=== PATIENT | male | born 1975 | race Caucasian/White ===

== ENCOUNTER → 2018-11-22 15:10 | Outpatient (CLI) | payer BC, SELFPAY | PROVIDERS: PCP Family Medicine; Visit Provider Nurse Practitioner | DX: I10 Essential (primary) hypertension (principal) | CPT/HCPCS: 93017 ==

== ENCOUNTER 2020-01-03 19:48 | Emergency (ER) | payer BC, SELFPAY ==
[2020-01-03 19:50] VITALS: BP 154/92; PULSE 84; RESP 16; TEMP 36.8; O2SAT 100; BMI 29.2
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
[2020-01-03 20:13] VITALS: BP 141/88; PULSE 80; RESP 18; O2SAT 98
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
[2020-01-03 21:25] VITALS: BP 140/80; PULSE 82; RESP 18; TEMP 36.8; O2SAT 98
== END 2020-01-03 21:25 | disposition home or self-care (01) ==
PROVIDERS: Emergency Provider Emergency Medicine; PCP Family Medicine
DX: S16.1XXA Strain of muscle, fascia and tendon at neck level, initial encounter (principal); S00.03XA Contusion of scalp, initial encounter; S49.91XA Unspecified injury of right shoulder and upper arm, initial encounter; V19.3XXA Pedal cyclist (driver) (passenger) injured in unspecified nontraffic accident, initial encounter; Y92.414 Local residential or business street as the place of occurrence of the external cause
CPT/HCPCS: 70450; 72125; 73030; 99283

== ENCOUNTER → 2020-01-04 13:33 | Outpatient (CLI) | payer BC, SELFPAY ==
--- NOTE | 2020-01-04 13:42 | XR_ITS ---
PROCEDURE: XR SHOULDER RT MIN 2V CLINICAL INDICATION: right shoulder pain COMPARISON: CR XR SHOULDER RT MIN 2V from 01/03/2020 FINDINGS: No acute fracture is evident. There is mild prominence of the AC joint with superior elevation of the distal aspect of the clavicle indicating an AC separation. Other findings:None. IMPRESSION: Right-sided AC separation possible grade 2 Dictated by: Jus Morelos MD 01/04/2020 16:24 Jus Morelos MD in [facility] 01/04/2020 16:24
== END ==
PROVIDERS: PCP Family Medicine; Visit Provider Orthopaedic Surgery
DX: M25.511 Pain in right shoulder (principal)
CPT/HCPCS: 73030

== ENCOUNTER 2020-02-13 08:00 | Outpatient (RCR) | payer BC, SELFPAY ==
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
== END 2020-02-13 08:05 | disposition home or self-care (01) ==
LOC: OT 08:00
PROVIDERS: PCP Family Medicine; Visit Provider Orthopaedic Surgery
DX: S49.91XD Unspecified injury of right shoulder and upper arm, subsequent encounter (principal); S43.111D Subluxation of right acromioclavicular joint, subsequent encounter
CPT/HCPCS: 97014; 97110; 97165; 97530; G0283

== ENCOUNTER → 2020-04-26 16:08 | Outpatient (CLI) | payer BC, SELFPAY ==
[2020-04-28 10:47] LABS: Covid-19 Nasal PCR Sendout P&C POSITIVE
== END ==
PROVIDERS: PCP Family Medicine; Visit Provider Nurse Practitioner
DX: Z20.822 Contact with and (suspected) exposure to COVID-19 (principal); U07.1 COVID-19; R68.89 Other general symptoms and signs; R50.9 Fever, unspecified
CPT/HCPCS: U0004

== ENCOUNTER 2021-03-30 04:26 | Observation (INO) | payer BC, SELFPAY ==
[2021-03-30] VITALS (23 sets, daily range): BP systolic 105–148; BP diastolic 64–99; PULSE 58–119; RESP 16–24; TEMP 36.6–36.7; O2SAT 95–98; BMI 30.7; BMI 30.6
--- NOTE | 2021-03-30 04:28 | ECG_ITS ---
APPROVED REPORT Exam: Resting ECG HR:106 bpm ECG Measurements Heart Rate 106 AXES QRSd 104 QRS 56 QT 340 T 68 QTc 451 Conclusion Atrial fibrillation with rapid ventricular response Minimal voltage criteria for LVH, may be normal variant Abnormal ECG Electronically signed by : Carlitos Tristan MD 03/30/2021 06:12:17
--- NOTE | 2021-03-30 04:59 | PC.NURSE ---
Cardizem increased to 15mg/hr at 0437
--- NOTE | 2021-03-30 05:02 | HMH.EDARPALP ---
ED Disposition Clinical Impression: Atrial fibrillation Qualifiers: Atrial fibrillation type: unspecified Qualified Code(s): I48.91 - Unspecified atrial fibrillation Disposition: Admitted as Observation Condition on Discharge: Good Referrals: Carlitos Cash MD [Primary Care Provider] - - Critical Care Critical Care Time: No Attestation: On , the high probability of a clinically significant, sudden or life threatening deterioration of the following system(s) required my full and direct attention, intervention and personal management. The time I documented below is in addition to time spent performing reported procedures but includes the following listed in this critical care notation. Medical Decision Making - Medical Records Medical records reviewed: Yes: I reviewed the patient's medical records. - Pedro Inquiry Pt receiving controlled substance: No Vital Signs: 03/30/21 04:26 03/30/21 04:37 03/30/21 05:00 Temperature 98.1 F Temperature Source Oral Pulse Rate 118 H 62 Pulse Rate [Right Radial] 119 H Respiratory Rate 20 19 Blood Pressure 130/99 H Blood Pressure [Right Arm] 148/99 H Blood Pressure Mean Blood Pressure Mean [Right Arm] 115 Blood Pressure Source [Right Arm] Automatic Cuff Blood Pressure Position [Right Arm] Sitting 02 Sat by Pulse Oximetry 97 97 Oxygen Delivery Method Room Air 03/30/21 05:30 03/30/21 06:00 03/30/21 06:30 Temperature Temperature Source Pulse Rate 76 85 76 Pulse Rate [Right Radial] Respiratory Rate 19 17 17 Blood Pressure 124/94 H 113/81 105/82 L Blood Pressure [Right Arm] Blood Pressure Mean Blood Pressure Mean [Right Arm] Blood Pressure Source [Right Arm] Blood Pressure Position [Right Arm] 02 Sat by Pulse Oximetry 96 97 97 Oxygen Delivery Method 03/30/21 06:55 03/30/21 07:15 03/30/21 07:30 Temperature Temperature Source Pulse Rate 96 H 74 74 Pulse Rate [Right Radial] Respiratory Rate 18 18 18 Blood Pressure 111/84 115/80 114/82 Blood Pressure [Right Arm] Blood Pressure Mean 90 96 Blood Pressure Mean [Right Arm] Blood Pressure Source [Right Arm] Blood Pressure Position [Right Arm] 02 Sat by Pulse Oximetry 98 97 97 Oxygen Delivery Method 03/30/21 07:33 Temperature Temperature Source Pulse Rate 71 Pulse Rate [Right Radial] Respiratory Rate 18 Blood Pressure 127/78 Blood Pressure [Right Arm] Blood Pressure Mean 94 Blood Pressure Mean [Right Arm] Blood Pressure Source [Right Arm] Blood Pressure Position [Right Arm] 02 Sat by Pulse Oximetry 98 Oxygen Delivery Method - Lab Data Lab results reviewed: Yes: I reviewed the patient's lab results. Lab Results 03/30/21 04:54: Troponin I 0.01, TSH 0.70, Thyroxine (T4) 16.1 H Orders (Tests/Meds): ED MEDICATIONS Generic Name Dose Route Start Last Admin Trade Name Freq PRN Reason Stop Dose Admin Diltiazem HCl 100 mg/ Sodium 100 mls @ 10 mls/hr 03/30/21 06:57 03/30/21 07:31 Chloride IV 04/29/21 06:56 10 mls/hr .Q10H MAX Administration Protocol ORDERS Category Date Time Status Rapid PCR Covid and Flu A/B Stat Lab 03/30/21 06:22 Ordered Troponin I Q3H Lab 03/30/21 07:45 Ordered Troponin I Q3H Lab 03/30/21 10:45 Ordered EKG Request [ECG Request by Dr/Nse] Stat Y 03/30/21 08:32 Ordered - ECG Data Tracing #1 Arrhythmias present: afib Ischemic changes: non-specific ST-T wave changes ECG compared to prior tracings: there are no significant changes - Physician Consults Physician Consulted: yonis Reason -: Admission Medical Decision Narrative: new onset a fib on card drip - wl elevated t4 Arrhythmia/Palpitations HPI - General Chief Complaint: Arrhythmia/Palpitations Stated Complaint: Afib Time Seen by Provider: 03/30/21 04:35 Mode of Arrival: EMS Source of Information: Patient, EMS, Medical Record Limitations: No Limitations - History of Present Illness HPI soniya
[2021-03-30 05:27] LABS: T4 (Thyroxine) 16.1 ug/dl (5.53-11.0)
[2021-03-30 05:28] LABS: Troponin I 0.01 ng/ml (0.00-0.034)
--- NOTE | 2021-03-30 06:32 | PC.NURSE ---
Cardizem decreased to 10mg/hr
--- NOTE | 2021-03-30 07:36 | PC.NURSE ---
Cardizem increased to 15mg/hr HR=96 JP=800/78
--- NOTE | 2021-03-30 08:28 | PC.NURSE ---
speaking with Dr Cash at this time.
--- NOTE | 2021-03-30 08:38 | ECG_ITS ---
APPROVED REPORT Exam: Resting ECG HR:66 bpm ECG Measurements Heart Rate 66 AXES QRSd 106 QRS 57 QT 386 T 62 QTc 404 Conclusion Atrial fibrillation Increased R/S ratio in V1, consider early transition or posterior infarct Abnormal ECG Electronically signed by : Carlitos Tristan MD 03/30/2021 19:55:40
[2021-03-30 09:01] LABS: Coronavirus 19, PCR Not Detected (NotDetected); Influenza A, PCR Not Detected (NotDetected); Influenza B, PCR Not Detected (NotDetected)
[2021-03-30 09:07] LABS: Magnesium 1.8 mg/dl (1.6-2.3)
[2021-03-30 09:24] LABS: Free T4 (Free Thyroxine) 1.54 ng/dl (0.78-2.19)
--- NOTE | 2021-03-30 09:37 | PC.NURSE ---
attempted to call report, no answer
[2021-03-30 10:01] LABS: Troponin I 0.01 ng/ml (0.00-0.034)
--- NOTE | 2021-03-30 10:45 | PC.NURSE ---
pt arrived to the floor at this time
--- NOTE | 2021-03-30 22:24 | PC.NURSE ---
spoke with MD Cash about pt's HR 58-60 on dilt drip at 5, instructed to give dilt ER 240 mg and then turn drip off after 1 hour, will do so and continue to monitor
[2021-03-31] VITALS (11 sets, daily range): BP systolic 89–169; BP diastolic 58–103; PULSE 50–76; RESP 12–22; TEMP 36.1–37; O2SAT 94–100; BMI 31.1
--- NOTE | 2021-03-31 00:03 | PC.NURSE ---
stopped dilt drip one hour after giving po dilt per MD Cash telephone order, will continue to monitor
[2021-03-31 05:56] LABS: Basophils # 0.1 K/mm3 (0-0.2); Basophils % 1.2 % (0.1-2.0); Eosinophils # 0.3 K/mm3 (0.0-0.4); Eosinophils % 3.6 % (0.1-12.0); Hematocrit 45.5 % (42.0-52.0); Hemoglobin 15.4 g/dL (14.1-18.0); Lymphocytes # 1.9 K/mm3 (0.7-4.5); Lymphocytes % 26.6 % (10-50); Mean Corpuscular HGB Conc 33.9 g/dL (31.8-35.4); Mean Corpuscular Hemoglobin 30.2 pg (27.0-31.2); Mean Corpuscular Volume 88.9 fl (80-94); Mean Platelet Volume 7.4 fl (7.4-10.4); Monocytes # 0.7 K/mm3 (0.1-1.0); Monocytes % 9.4 % (1.7-9.3); Neutrophils # 4.3 K/mm3 (1.8-7.8); Neutrophils % 59.2 % (37.0-80.0); Platelet Count 237 K/mm3 (142-424); Red Blood Count 5.12 M/mm3 (4.60-6.20); Red Cell Distribution Width 13.5 % (11.5-17.5); White Blood Count 7.3 K/mm3 (4.8-10.8)
[2021-03-31 06:00] LABS: Chloride 106 mmol/L (98-107); Potassium 4.3 mmoL/L (3.5-5.1); Sodium 138 mmol/L (136-145)
[2021-03-31 06:03] LABS: Anion Gap 12.3 mEq/L (5-15); Blood Urea Nitrogen 16 mg/dl (9-20); Calcium 9.2 mg/dl (8.4-10.2); Carbon Dioxide 24 mmol/L (22.0-30.0); Chol/HDL Ratio 5.9 (1-3.5); Cholesterol 153 mg/dl (140-200); Creatinine Clearance Estimated 145 mL/min (50-200); Estimated Glomerular Filt Rate 90 ml/min (>60); GFR (African American) 109 ML/MIN (>60); Glucose 101 mg/dl (74-100); HDL Cholesterol 26 mg/dl (40-60); Triglycerides 128 mg/dl (30-150); VLDL Cholesterol 26 mg/dL (0-40)
[2021-03-31 06:14] LABS: Direct LDL Cholesterol 105.64 mg/dL (100-129)
--- NOTE | 2021-03-31 08:59 | HMH.HP ---
*Admission Date: 03/31/21 *Chief complaint: Palpitations *History of present illness: 46-year-old male initially presented to the emergency department over in [facility] after developing a fluttering sensation in his chest that he describes as both intense and lasting longer than he was used to. Patient does report episodes of palpitations in the past which have become more frequent recently with increased stress at work. However the incident that led to the ER evaluation was much more intense. Patient was found to be in atrial fibrillation at [facility]. Admission was discussed and patient preferred to be here as I am the patient's primary care physician and [facility] ER spoke with Dr. Camara. Patient was transferred here on Cardizem drip. He remained on Cardizem drip both in our ER and on the Medr floor until yesterday evening. By yesterday evening patient's rate was in the 60s and 70s and he was transitioned to oral Cardizem. Patient does report some mild shortness of breath when he was tachycardic. Patient denies any recent illnesses. He denies any symptoms of hyperthyroidism. Patient did have an elevated thyroxine in the emergency department but a free T4 is normal. Free T3 is pending [facility] History I have reviewed the patient's past medical history: Yes Medical History: Reports:: Hypertension Denies:: Cancer, Diabetes Mellitus Type 1, Diabetes Mellitus Type 2, MRSA *Have you ever received a pneumonia vaccine?: No *Have you received a flu vaccine this season?: Yes Other Surgeries: Yes: No Previous Surgery Amputation: No - *Social History Smoking Status: Never smoker Alcohol Intake: never *Occupational Status:: employed Household Members: spouse, children *Travel in the last 8 weeks: None Family Hx:: No significant family history Review of Systems - Constitutional Denies body ache(s), Denies chills, Denies lack of energy - Eyes Denies blurry vision, Denies loss of vision - ENT Denies bleeding gums, Denies ear discharge - *Cardiovascular Denies leg pain with activity, Denies excessive sweating, Denies shortness of breath with activity, Denies generalized swelling, Denies lightheadedness - *Respiratory Denies change in phlegm color, Denies chest congestion - *Gastrointestinal Denies abdominal pain, Denies belching, Denies loose stools - *Genitourinary Denies difficulty urinating - *Musculoskeletal Denies abnormal walking, Denies joint pain - *Neurologic Denies seizure-like activity Meds Home Medications Medication Instructions Recorded Confirmed Type lisinopril 10 mg tablet 10 mg PO DAILY 01/04/20 03/30/21 History Allergies Allergy/AdvReac Type Severity Reaction Status Date / Time No Known Allergies Allergy Verified 01/17/20 13:35 Exam Vital signs and Labs for Last 24 Hours: Temp Pulse Resp BP Pulse Ox 96.9 F L 63 12 169/103 H 96 03/31/21 08:00 03/31/21 08:00 03/31/21 08:00 03/31/21 08:00 03/31/21 08:00 Laboratory Results - last 24 hr 03/30/21 04:54: Free T4 1.54 03/30/21 04:54: Magnesium 1.8 03/30/21 08:30: SARS-CoV-2 (PCR) Not detected, Influenza A Untype (PCR) Not detected, Influenza Type B (PCR) Not detected 03/30/21 09:25: Troponin I 0.01 03/31/21 05:28: WBC 7.3, RBC 5.12, Hgb 15.4, Hct 45.5, MCV 88.9, MCH 30.2, MCHC 33.9, RDW 13.5, Plt Count 237, MPV 7.4, Neut % (Auto) 59.2, Lymph % (Auto) 26.6, Trigg % (Auto) 9.4 H, Eos % (Auto) 3.6, Baso % (Auto) 1.2, Neut # (Auto) 4.3, Lymph # (Auto) 1.9, Trigg # (Auto) 0.7, Eos # (Auto) 0.3, Baso # (Auto) 0.1 03/31/21 05:28: Sodium 138, Potassium 4.3, Chloride 106, Carbon Dioxide 24, Anion Gap 12.3, BUN 16, Creatinine 0.90, Estimated Creat Clear 145, Estimated GFR 90, Est GFR ( Amer) 109, Glucose 101 H, Calcium 9.2, Triglycerides 128, Cholesterol 153, LDL Cholesterol Direct 105.64, VLDL Cholesterol 26, HDL Cholesterol 26 L, Cholesterol/HDL Ratio 5.9 H I & O for Last 24 hours: Intake & Output
--- NOTE | 2021-03-31 11:00 | P.CONPHA_ITS ---
[facility] Pharmacy VTE Monitoring - Patient Demographics Admission date: 03/31/21 Report Date: 03/31/21 Time: 11:01 Allergies/Adverse Reactions: Patient Allergies No Known Allergies Allergy (Verified 01/17/20 13:35) Height: 1.8 m Weight: 100.924 kg Patient Problems: Current Active Problems Atrial fibrillation (Acute) - VTE Risk Labs: VTE Related Lab Results Hgb 15.4 g/dL (14.1-18.0) 03/31/21 05:28 Hct 45.5 % (42.0-52.0) 03/31/21 05:28 Plt Count 237 K/mm3 (142-424) 03/31/21 05:28 BUN 16 mg/dl (9-20) 03/31/21 05:28 Creatinine 0.90 mg/dl (0.66-1.25) 03/31/21 05:28 Estimated Creat Clear 145 mL/min (50-200) 03/31/21 05:28 VTE Score: 1 VTE Risk Level: Very Low Risk - Prophylaxis Types of VTE Prophylaxis: Pharmacological Pharmacologic Type: Other (XARELTO 20 MG DAILY ORDERED)
[2021-04-01] VITALS: BP 130/84; PULSE 60; PULSE 75; RESP 16; TEMP 36.6; O2SAT 95
--- NOTE | 2021-04-01 00:01 | CA_ITS ---
APPROVED REPORT EXAM: Comprehensive 2D, Doppler, and color-flow Echocardiogram Compliance Counsel: Gisela Stewart CRT Ht: 5 ft 10 in Wt: 222lbs BSA: 2.18 BP: 105/82 mmHg Indications: Atrial Fibrillation, Hypertension/HDD 2D Dimensions LVOT 2.19 cm (M/F) 1.5-2.5 LA Volume 28.90 mL LA Volume Index 13.30 mL/m2 (M/F) 16-34 M-Mode Dimensions RVDd 2.65 cm (0.9-2.6) LA Diam 3.54 cm (1.9-4.0) LVDd 4.40 cm (3.5-5.7) Ao Diam 3.83 cm (2.0-3.7) LVDs 2.71 cm (3.5-5.7) IVSd 1.47 cm (0.6-1.1) PWd 0.84 cm (0.6-1.1) EF (Teich) 68.90% FS 38.40% EDV (Teich) 87.70 mL ESV (Teich) 27.30 mL LV Diastology E Decel Time 240.00 (160-240 msec) E/A Ratio 0.91 MED E' 5.90 (< 7 cm/sec) MED A' 9.10 cm/s E'/MED E' Ratio 12.47 (>14) LAT A' 14.60 cm/s Aortic Valve LVOT Max 142.00 (70-110 cm/s) LVOT VTI 28.40 cm AoV Peak Ricki. 201.00 (50-130 cm/s) AO Peak GR. 16.10 mmHg AO Mean GR. 7.80 (<5 mmHg) AO VTI 35.33 (18-25 cm) VIANCA (VTI) 3.03 (2.5-4.5 cm2) Mitral Valve MV A Velocity 81.00 (40-130 cm/s) E/A Ratio 0.91 MV Decel. Time 240.00 (160-240 ms) Pulmonary Valve PV Peak Velocity 119.00 (50-150 cm/s) Tricuspid Valve TR P. Velocity 219.00 cm/s RAP Estimate 10.00 mmHg RVSP 29.30 mmHg Left Ventricle Left atrium is mildly enlarged, left ventricle is normal size, mild concentric left ventricular hypertrophy, visually estimated ejection fraction 55% with no regional wall motion abnormality, grade 1 diastolic dysfunction seen without tissue Doppler evidence of raise left atrial pressure. Right Ventricle Right atrium and right ventricle are normal size and contractility. Aortic Valve Aortic valve is minimally thickened and fibrosed, there is no aortic stenosis or aortic insufficiency. Mitral Valve Mitral valve is grossly normal, there is trace mitral regurgitation. Tricuspid Valve Tricuspid valve grossly normal, there is trace tricuspid regurgitation. Pulmonic Valve Pulmonic valve is poorly visualized. Great Vessels Aortic root is normal size. Inferior vena cava is poorly visualized. Pericardium No significant pericardial effusion noted. Conclusion 1. Mildly enlarged left atrium, normal left ventricular size, mild concentric left ventricular hypertrophy, visually estimated ejection fraction 55% with no regional wall motion abnormality, grade 1 diastolic dysfunction seen without tissue Doppler evidence of raise left atrial pressure. 2. Trace mitral and tricuspid regurgitation. 3. No significant pericardial effusion noted. 4. Inferior vena cava is poorly visualized. Electronically signed by : Aldo Teresa MD 04/01/2021 20:42:08
[2021-04-01 04:00] VITALS: BP 115/74; PULSE 60; PULSE 73; RESP 19; TEMP 36.7; O2SAT 95
[2021-04-01 05:00] VITALS: BMI 30.9
--- NOTE | 2021-04-01 06:53 | HMH.ACPN2 ---
Internal Medicine - PN: Subj *Date: 04/01/21 *Time: 06:53 Interval history: No acute events over the last 24 hours. Patient appears to have converted to sinus rhythm on telemetry. He denies complaints Exam Vital signs and Labs for Last 24 Hours: Temp Pulse Resp BP Pulse Ox 98.1 F 73 19 115/74 95 04/01/21 04:00 04/01/21 04:00 04/01/21 04:00 04/01/21 04:00 04/01/21 04:00 I & O for Last 24 hours: Intake & Output 03/29/21 03/30/21 03/31/21 04/01/21 11:59 11:59 11:59 11:59 Intake Total 1802 / 1802 840 / 840 Balance 1802 / 1802 840 / 840 Weight 219 lb 7 oz 222 lb 8 oz 221 lb 5 oz - Constitutional no acute distress - *Routine Respiratory Exam Present: CTA bilaterally - *Routine Cardiovascular Exam Present: RRR - *Routine Abdominal Exam Present: soft, normoactive bowel sounds. Absent: tenderness Assessment and Plan (1) Atrial fibrillation Status: Acute Qualifiers: Atrial fibrillation type: unspecified Qualified Code(s): I48.91 - Unspecified atrial fibrillation Category: Medical Code(s): I48.91 - Unspecified atrial fibrillation - Assessment and plan all Dx Assessment and Plan for all problems:: 1. Echocardiogram is been completed this morning 2. Patient will have cardiology evaluation and plan for discharge later today
[2021-04-01 08:00] VITALS: BP 129/81; PULSE 67; PULSE 74; RESP 16; TEMP 36.6; O2SAT 94
--- NOTE | 2021-04-01 09:58 | HMH.CNCARD ---
History of Present Illness Consult date: 04/01/21 Requesting physician: Carlitos Cash Consult reason: atrial fibrillation Chief complaint: New onset of atrial fib History of present illness: 46-year-old male admitted to [facility] for new onset atrial fibrillation. Patient had been transferred from [facility] due to the new onset of atrial fibrillation. Patient was admitted on 04/01/2021. Patient denies any history of no known atrial fibrillation. Patient states he was returning from the movies when he started becoming very short of breath and had fluttery feeling in his chest. Patient arrived at [facility] ED, in which once he was hooked up to the heart monitor revealed new onset atrial fibrillation with RVR. Patient was then placed on diltiazem drip for atrial fibrillation heart rate control. Patient is currently off diltiazem drip due to patient did convert into sinus rhythm. Patient remains in sinus rhythm with a heart rate of 60 bpm. Patient is currently on diltiazem p.o. Patient's [id number] is 1 in which patient does have history of hypertension which is controlled. Patient denies chest pain, tightness or pressure. Patient denies shortness of breath. Patient states he is feeling much better. No swelling noted of the lower extremities. Vital signs are stable. Serial troponins were negative x2. Echocardiogram was performed. Preliminary echocardiogram reveals EF greater than 55% with trace of MR and TR noted. Waiting official echocardiogram results. Pending on the echocardiogram results, medication and treatment therapies may be recommended. Patient had previously been started on Xarelto due to new onset of atrial fibrillation. Due to patient's Daron vas score of 1, no AC is recommended at this time. Xarelto can be stopped. We will need to continue to monitor patient for atrial fibrillation if he begins to develop signs and symptoms. Patient will need an ischemic cardiac work-up on an outpatient basis such as stress test. Patient will need to follow-up with cardiology in 1 week following hospital discharge. [facility] History I have reviewed the patient's past medical history: Yes Medical History: Reports:: Atrial Fibrillation, Hypertension Denies:: Cancer, Diabetes Mellitus Type 1, Diabetes Mellitus Type 2, MRSA *Have you ever received a pneumonia vaccine?: No *Have you received a flu vaccine this season?: Yes Other Surgeries: Yes: No Previous Surgery Amputation: No - *Social History Smoking Status: Never smoker Alcohol Intake: never *Occupational Status:: employed Household Members: spouse, children *Travel in the last 8 weeks: None Family Hx:: No significant family history Meds Home Medications Medication Instructions Recorded Confirmed Type lisinopriL [Lisinopril] 10 mg PO DAILY 03/31/21 03/31/21 History dilTIAZem HCL [Cardizem ER 240mg 240 mg PO 2100 #30 04/01/21 Rx Capsule] Allergies Allergy/AdvReac Type Severity Reaction Status Date / Time No Known Allergies Allergy Verified 01/17/20 13:35 Exam Vital signs and Labs for Last 24 Hours: Temp Pulse Resp BP Pulse Ox 97.8 F 67 16 129/81 94 L 04/01/21 08:00 04/01/21 08:00 04/01/21 08:00 04/01/21 08:00 04/01/21 08:00 I & O for Last 24 hours: Intake & Output 03/29/21 03/30/21 03/31/21 04/01/21 23:59 23:59 23:59 23:59 Intake Total 1284 / 1322 1358 / 1358 360 / 360 Balance 1284 / 1322 1358 / 1358 360 / 360 Weight 219 lb 7 oz 222 lb 8 oz 221 lb 5 oz - Constitutional no acute distress, obese, cooperative - *Routine HEENT Exam Head: Present: normocephalic ENT: Present: mucous membranes moist - *Routine Neck Exam Present: supple, full ROM, normal carotid upstroke. Absent: JVD, carotid bruit, lymphadenopathy - *Routine Respiratory Exam Present: accessory muscle use, CTA bilaterally. Absent: wheezes, crackles - *Routine Cardiovascular Exam Present: RRR, Normal
[2021-04-01 12:09] LABS: Triiodothyronine (T3) Free 4.9 pg/mL (2.0-4.4)
--- NOTE | 2021-04-02 07:18 | P.DS_ITS ---
General - General Admission date:: 03/30/21 Discharge date: 04/02/21 HPI HPI: 46-year-old male initially presented to the emergency department over in [facility] after developing a fluttering sensation in his chest that he describes as both intense and lasting longer than he was used to. Patient does report episodes of palpitations in the past which have become more frequent recently with increased stress at work. However the incident that led to the ER evaluation was much more intense. Patient was found to be in atrial fibrillation at [facility]. Admission was discussed and patient preferred to be here as I am the patient's primary care physician and [facility] ER spoke with Dr. Camara. Patient was transferred here on Cardizem drip. He remained on Cardizem drip both in our ER and on the [facility] floor until yesterday evening. By yesterday evening patient's rate was in the 60s and 70s and he was transitioned to oral Cardizem. Patient does report some mild shortness of breath when he was tachycardic. Patient denies any recent illnesses. He denies any symptoms of hyperthyroidism. Patient did have an elevated thyroxine in the emergency department but a free T4 is normal. Free T3 is pending Hospital Course Hospital Course: Patient was admitted and placed on Cardizem drip. Cardizem drip brought patient's heart rate under control and ultimately patient converted back to sinus rhythm with a rate in the 60s and 70s. Patient was kept as an inpatient to allow for echocardiogram and cardiology consultation due to the mild elevation in troponin at the outside facility. Echocardiogram did not reveal any valvular disease and had normal LV function. Patient was discharged home in stable condition. His [id number] 2 score was 1. No anticoagulant will be p rescribed at discharge. Patient will remain on Cardizem. Objective Vital signs: Temp Pulse Resp BP Pulse Ox 97.8 F 67 16 129/81 94 L 04/01/21 08:00 04/01/21 08:00 04/01/21 08:00 04/01/21 08:00 04/01/21 08:00 Results Labs on day of discharge: Labs from last 24 hours 03/30/21 04:54 Free T3 4.9 H DS: Diagnosis - Discharge Diagnosis (1) Atrial fibrillation Status: Acute Discharge Plan - Patient Discharge Instructions ACTIVITY: Continue current activity DIET: continue same diet Patient Instructions: Getting to the Heart of a Healthful Diet: Sodium, Keeping Sodium Low When You're Eating on the Go, Atrial Fibrillation, Low-Sodium Diet - Follow up Plan Follow up with: Adrian Camara MD [Staff Physician] - 04/08/21 2:00 pm Carlitos Cash MD [Primary Care Provider] - 04/08/21 10:15 am Disposition: Home, Self-Care Condition at discharge:: Improved Home Medications: Home Medications Medication Instructions Recorded Confirmed Type lisinopriL [Lisinopril] 10 mg PO DAILY 03/31/21 03/31/21 History dilTIAZem HCL [Cardizem ER 240mg 240 mg PO 2100 #30 04/01/21 Rx Capsule] Prescriptions/Medication Reconciliation: New dilTIAZem HCL [Cardizem ER 240mg Capsule] 240 mg PO 2100 #30 Continued lisinopriL [Lisinopril] 10 mg PO DAILY - Problem Reconciliation Problems Reviewed?: Yes
== END 2021-04-01 12:18 | disposition home or self-care (01) ==
LOC: ER 08:54 → 2ND 03-31 07:13
PROVIDERS: Admitting Provider Family Medicine; Emergency Provider Emergency Medicine; PCP Family Medicine; Visit Provider Family Medicine
DX: I48.91 Unspecified atrial fibrillation (principal); F17.210 Nicotine dependence, cigarettes, uncomplicated; K21.9 Gastro-esophageal reflux disease without esophagitis; I10 Essential (primary) hypertension; E78.5 Hyperlipidemia, unspecified; Z20.822 Contact with and (suspected) exposure to COVID-19
CPT/HCPCS: 36415; 80048; 80061; 83735; 84436; 84439; 84443; 84481; 84484; 85025; 93005; 93306; 96365; 99284; C9803; G0378; U0003; U0005

== ENCOUNTER → 2021-04-11 09:44 | Outpatient (CLI) | payer BC, SELFPAY ==
--- NOTE | 2021-04-11 | CA_ITS ---
APPROVED REPORT Exam: Exercise Treadmill Technologist: Rach Todd, Ht: 5 ft 11 in Wt: 224 lbs BSA: 2.21 m2 HR: 59 bpm BP: 131/85 mmHg Indications: Afib Medical History Medications: Lisinopril,,,,, Dilitaizem HCI,,,,, Stress Test Details Test: Kwaku HR Resting HR: 69 bpm Max Heart Rate (APMHR): 173 bpm Max HR Achieved: 138 bpm Target HR (85% APMHR): 147 bpm % of APMHR: 80 Recovery HR: 89 bpm BP Resting BP: 131/85 mmHg Max BP: 182/90 mmHg Recovery BP: 129.0/56.0 mmHg ECG Clinical Reason for Termination: Dyspnea Exercise duration: 10:27 min Highest Stage Achieved: Exercise capacity: 12.8 METs Stress ECG Conclusion Max HR - 138: % of PM - 80%: Max B/P - 182/90: METS - 12.8 - test stopped due to SOA and fatigue. No chest pain. No arrhythmias. ST -T changes - allowing for baseline T wave abn., the ST response to exercise is within normal. Nondiagnostic as patient did not achieve the target heart rate. Blunted HR response on Diltiazem. GXT only - no imaging. Test Summary REST . . . . . . . Sitting REST . . . . . . . Standing REST 04:07 0.0 0.0 69 . 131/ 85 . . Stage 1 01:00 10.0 1.7 84 . . . . Stage 1 02:00 10.0 1.7 90 . . . . Stage 1 03:00 10.0 1.7 90 . 144/ 88 . . Stage 2 01:00 12.0 2.5 105 . . . . Stage 2 02:00 12.0 2.5 99 . . . . Stage 2 03:00 12.0 2.5 94 . 182/ 90 . . Stage 3 01:00 14.0 3.4 108 . . . . Stage 3 02:00 14.0 3.4 112 . . . . Stage 3 03:00 14.0 3.4 115 . . . . Stage 4 01:00 16.0 4.2 135 . . . . Stage 4 01:27 16.0 4.2 138 . . . Stop exercise at 10:27 RECOVERY 01:00 0.0 0.0 116 . . . . RECOVERY 02:00 0.0 0.0 92 . 157/ 75 . . RECOVERY 03:00 0.0 0.0 86 . 154/ 57 . . RECOVERY 04:00 0.0 0.0 86 . 154/ 57 . . RECOVERY 05:00 0.0 0.0 89 . 129/ 56 . . RECOVERY 05:19 0.0 0.0 88 . 129/ 56 . . Electronically signed by : Aldo Teresa MD 04/12/2021 15:43:04
== END ==
PROVIDERS: PCP Family Medicine; Visit Provider Urology
DX: I48.91 Unspecified atrial fibrillation (principal)
CPT/HCPCS: 93017

== ENCOUNTER → 2021-07-12 16:31 | Outpatient (CLI) | payer BC, SELFPAY | PROVIDERS: PCP Family Medicine; Visit Provider Physician Assistant | DX: G47.33 Obstructive sleep apnea (adult) (pediatric) (principal); R06.83 Snoring; I10 Essential (primary) hypertension; I48.0 Paroxysmal atrial fibrillation | CPT/HCPCS: G0399 ==

== ENCOUNTER → 2022-07-17 08:54 | Outpatient (CLI) | payer BC, SELFPAY ==
[2022-07-17 10:29] LABS: Alanine Aminotransferase 25 U/L (12-78); Albumin Level 4.4 g/dl (3.5-5.0); Alkaline Phosphatase 111 U/L (38-126); Aspartate Amino Transferase 27 U/L (17-59); Bilirubin,Indirect 0.5 mg/dL (0.0-0.9); Bilirubin,Total 0.5 mg/dl (0.2-1.3); Bilirubin,Unconjugated 0.6 mg/dL (0.0-1.1); Chol/HDL Ratio 5.2 (1-3.5); Cholesterol 167 mg/dl (140-200); HDL Cholesterol 32 mg/dl (40-60); Total Protein,Serum 7.1 g/dl (6.3-8.2); Triglycerides 164 mg/dl (30-150); VLDL Cholesterol 33 mg/dL (0-40)
[2022-07-17 10:40] LABS: Direct LDL Cholesterol 108.45 mg/dL (100-129)
== END ==
PROVIDERS: Visit Provider Nurse Practitioner
DX: I10 Essential (primary) hypertension (principal); I48.91 Unspecified atrial fibrillation
CPT/HCPCS: 36415; 80061; 80076

== ENCOUNTER → 2023-02-05 09:15 | Outpatient (CLI) | payer BC, SELFPAY ==
--- NOTE | 2023-02-05 09:17 | CA_ITS ---
APPROVED REPORT EXAM: Comprehensive 2D, Doppler, and color-flow Echocardiogram Azure Architect: Vanna Lozada RT(R) Ht: 5 ft 11 in Wt: 217lbs BSA: 2.18 BP: 126/80 mmHg Indications: Murmur, HTN, AFIB, SIMIN, calcified AV seen on echo 03/2021 2D Dimensions LVOT 2.14 cm (M/F) 1.5-2.5 LA Volume 25.80 mL LA Volume Index 11.78 mL/m2 (M/F) 16-34 M-Mode Dimensions RVDd 2.61 cm (0.9-2.6) LA Diam 3.36 cm (1.9-4.0) LVDd 4.48 cm (3.5-5.7) Ao Diam 2.76 cm (2.0-3.7) LVDs 3.34 cm (3.5-5.7) IVSd 1.07 cm (0.6-1.1) PWd 0.67 cm (0.6-1.1) EF (Teich) 50.40% FS 25.40% EDV (Teich) 91.50 mL ESV (Teich) 45.40 mL LV Diastology E Decel Time 227.00 (160-240 msec) E/A Ratio 0.9 MED E' 6.60 (< 7 cm/sec) E'/MED E' Ratio 11.38 (>14) LAT E' 9.60 (<10 cm/sec) E/LAT E' Ratio 7.82 (>14) Aortic Valve LVOT Max 147.00 (70-110 cm/s) LVOT VTI 27.82 cm AoV Peak Ricki. 163.00 (50-130 cm/s) AO Peak GR. 10.60 mmHg AO Mean GR. 5.30 (<5 mmHg) AO VTI 30.78 (18-25 cm) VIANCA (VTI) 3.25 (2.5-4.5 cm2) Mitral Valve MV E Max Ricki. 75.00 (40-130 cm/s) MV A Velocity 87.00 (40-130 cm/s) E/A Ratio 0.86 MV Decel. Time 227.00 (160-240 ms) MV PHT 66.00 ms Left Ventricle The left ventricle is normal size. The left ventricular systolic function is normal. The left ventricular ejection fraction is within the normal range. There is increased LV wall thickness. There is normal LV segmental wall motion. The left ventricular diastolic function is normal. LVEF is 55%. Right Ventricle The right ventricle is normal size. The right ventricular systolic function is normal. Atria The left atrium size is normal. The right atrium size is normal. The interatrial septum is not well visualized. Aortic Valve The aortic valve is mildly thickened. There is no aortic valvular stenosis. Trace aortic regurgitation. Mitral Valve The mitral valve is normal in structure. No evidence of mitral valve stenosis. Trace mitral regurgitation. Tricuspid Valve The tricuspid valve leaflets are thin and pliable. Trace tricuspid regurgitation. RVSP is normal. Pulmonic Valve The pulmonary valve is normal in structure. Trace pulmonic regurgitation. Great Vessels The aortic root is normal in size. The ascending aorta is normal in size. The IVC is not well visualized. Pericardium There is no pericardial effusion. Other Information Study Quality: Fair Conclusion Normal biventricular systolic function. No significant valvular stenosis or regurgitation. Electronically signed by : Stacey Medrano MD 02/07/2023 21:28:39
== END ==
LOC: RT 09:15
PROVIDERS: PCP Internal Medicine Adolescent Medicine; Visit Provider Physician Assistant
DX: I35.8 Other nonrheumatic aortic valve disorders (principal); I48.91 Unspecified atrial fibrillation; R01.1 Cardiac murmur, unspecified; I10 Essential (primary) hypertension; G47.33 Obstructive sleep apnea (adult) (pediatric)
CPT/HCPCS: 93306

== ENCOUNTER 2023-08-12 10:19 | Outpatient (CLI) | payer BC, SELFPAY ==
[2023-08-12 10:55] LABS: Basophils # 0.1 K/mm3 (0-0.2); Basophils % 1.4 % (0.1-2.0); Eosinophils # 0.2 K/mm3 (0.0-0.4); Eosinophils % 3.2 % (0.1-12.0); Hematocrit 46.9 % (42.0-52.0); Hemoglobin 15.8 g/dL (14.1-18.0); Lymphocytes # 1.6 K/mm3 (0.7-4.5); Lymphocytes % 29.8 % (10-50); Mean Corpuscular HGB Conc 33.6 g/dL (31.8-35.4); Mean Corpuscular Hemoglobin 30.8 pg (27.0-31.2); Mean Corpuscular Volume 91.5 fl (80-94); Mean Platelet Volume 7.4 fl (7.4-10.4); Monocytes # 0.5 K/mm3 (0.1-1.0); Monocytes % 9.8 % (1.7-9.3); Neutrophils # 3.1 K/mm3 (1.8-7.8); Neutrophils % 55.7 % (37.0-80.0); Platelet Count 234 K/mm3 (142-424); Red Blood Count 5.12 M/mm3 (4.60-6.20); Red Cell Distribution Width 14.1 % (11.5-17.5); White Blood Count 5.5 K/mm3 (4.8-10.8)
[2023-08-12 12:10] LABS: Alanine Aminotransferase 36 U/L (12-78); Albumin Level 4.4 g/dl (3.5-5.0); Alkaline Phosphatase 117 U/L (38-126); Anion Gap 12.6 mEq/L (5-15); Aspartate Amino Transferase 35 U/L (17-59); Bilirubin,Direct 0.1 mg/dl (0.0-0.4); Bilirubin,Indirect 0.5 mg/dL (0.0-0.9); Bilirubin,Total 0.6 mg/dl (0.2-1.3); Bilirubin,Unconjugated 0.4 mg/dL (0.0-1.1); Blood Urea Nitrogen 14 mg/dl (9-20); Calcium 10.3 mg/dl (8.4-10.2); Carbon Dioxide 28 mmol/L (22.0-30.0); Chloride 106 mmol/L (98-107); Chol/HDL Ratio 5.1 (1-3.5); Cholesterol 195 mg/dl (140-200); Estimated Glomerular Filt Rate 79 ml/min (>60); GFR (African American) 96 ML/MIN (>60); Glucose 96 mg/dl (74-100); HDL Cholesterol 38 mg/dl (40-60); Potassium 4.6 mmoL/L (3.5-5.1); Sodium 142 mmol/L (136-145); Total Protein,Serum 7.2 g/dl (6.3-8.2); Triglycerides 250 mg/dl (30-150); VLDL Cholesterol 50 mg/dL (0-40)
[2023-08-12 12:21] LABS: Direct LDL Cholesterol 116.96 mg/dL (100-129)
[2023-08-12 12:28] LABS: Free T4 (Free Thyroxine) 0.96 ng/dl (0.78-2.19)
[2023-08-12 12:43] LABS: Thyroid Stimulating Hormone 0.42 uIU/mL (0.465-4.68)
== END 2023-08-12 23:59 | disposition home or self-care (01) ==
LOC: LAB 10:19
PROVIDERS: PCP Internal Medicine Adolescent Medicine; Visit Provider Nurse Practitioner
DX: R06.00 Dyspnea, unspecified (principal); I10 Essential (primary) hypertension; Z82.49 Family history of ischemic heart disease and other diseases of the circulatory system; Z79.899 Other long term (current) drug therapy
CPT/HCPCS: 36415; 80048; 80061; 80076; 83735; 84439; 84443; 85025

== ENCOUNTER 2023-08-18 12:11 | Outpatient (CLI) | payer BC, SELFPAY ==
--- NOTE | 2023-08-18 12:11 | NM_ITS ---
APPROVED REPORT Exam: Nuclear Stress Test Indication: a-fib Patient Location: Outpatient Stress Tech: Letty Martinez [place] Tech:Fatoumata Mcdonald AZEEMArabella RT(R)(N) Ht: 5 ft 11 in Wt: 220 lbs HR: 79 bpm BP: 142/90 mmHg BSA: 2.20 m2 TID: 0.90 BMI: 30.6 History: a-fib Procedure: Patient exercised on Kwaku protocol 10:21 minutes and sec, resting heart rate 79 bpm, resting blood pressure 142/90 mmHg, with exercise maximum heart rate achived was 152 bpm which is 89 % of the maximum predicted heart rate and blood pressure was 170/82 mmHg. Test was stopped due to fatigue. Patient denied any complaint of chest pain. Patient has average exercise capacity, achieved 12.8 METs of workload on treadmill, the blood pressure response to exercise was normal . Cardiac Stress and Resting SPECT Images: Cardiac Stress and Resting SPECT images were obtained using technetium 99m Myoview 32.9 mCi stress and 10.77 mCi at rest. Technically difficult study due to poor significant soft tissue overlap with the cardiac borders. This may affect the diagnosed interpretation of the study findings. Resting and stress imaging in supine and prone positions demonstrate medium sized, moderate, fixed perfusion defect in the basal to mid inferior and inferolateral LV wall. Gated imaging demonstrates normal global LV systolic function. There is mild hypokinesis of the basal inferior LV wall. LVEF is calculated at 56%. Conclusion: Technically difficult study. Medium sized, moderate, fixed perfusion defect in the basal to mid inferior and inferolateral LV wall. Gated imaging demonstrates normal global LV systolic function. There is mild hypokinesis of the basal inferior LV wall. LVEF is calculated at 56%. In the setting of technically difficult study, young patient age and inconclusive for perfusion defect, further evaluation with noninvasive ischemic workup (i.e. CCTA) is recommended prior to proceeding with invasive coronary angiography. Electronically signed by : Stacey Medrano MD 08/20/2023 00:43:42
[2023-08-18] MEDS: ISOTOPE MYOVIEW (PER STUDY) 1 DOSE IV (14:28)
[2023-08-18] MEDS: SODIUM CHLORIDE 0.9% 10ML SYR (RAD ONLY) 10 ML IV ×2 (14:28)
--- NOTE | 2023-08-18 15:06 | CA_ITS ---
APPROVED REPORT Exam: Exercise Treadmill Technologist: Letty Martinez Ht: 5 ft 11 in Wt: 227 lbs BSA: 2.23 m2 HR: 67 bpm BP: 142/90 mmHg Indications: Dyspnea Medical History Medications: Lisinopril,,,,, Acetaminophen,,,,, DilTiazem,,,,, Stress Test Details Test: Kwaku HR Resting HR: 79 bpm Max Heart Rate (APMHR): 171 bpm Max HR Achieved: 152 bpm Target HR (85% APMHR): 145 bpm % of APMHR: 89 Recovery HR: 96 bpm HR response to stress: Normal HR response to stress BP Resting BP: 142.0/90.0 mmHg Max BP: 170.0/82.0 mmHg Recovery BP: 134.0/72.0 mmHg BP response to stress: Normal blood pressure response to stress. ECG Resting ECG: Normal sinus rhythm Stress EC.[address] depression Arrhythmia: None Clinical Exercise duration: 10:21 min Highest Stage Achieved: Exercise capacity: 12.8 METs Overall Exercise Capacity for Age: Average Stress ECG Conclusion The patient was able to exercise for a total of 10 minutes, 21 seconds. He achieved a total of 12.8 METS. He has average exercise capacity compared to age and sex matched peers. He has normal HR and BP response to exercise Symptoms: Dyspnea Arrhythmias/Ectopy: None ST-T Changes:0.[address] depression. Conclusion: Normal EKG response to exercise. Myoview images are reported separately. Test Summary REST . . . . . . . Sitting REST . . . . . . . Standing REST 04:16 0.0 0.0 79 . 142/ 90 . . Stage 1 01:00 10.0 1.7 95 . . . . Stage 1 02:00 10.0 1.7 101 . . . . Stage 1 03:00 10.0 1.7 102 . . . . Stage 2 01:00 12.0 2.5 112 . . . . Stage 2 02:00 12.0 2.5 113 . . . . Stage 2 03:00 12.0 2.5 122 . . . . Stage 3 01:00 14.0 3.4 128 . 155/ 88 . . Stage 3 02:00 14.0 3.4 129 . 155/ 88 . . Stage 3 03:00 14.0 3.4 140 . 160/ 88 . . Stage 4 01:00 16.0 4.2 149 . . . . Stage 4 01:21 16.0 4.2 151 . . . Stop exercise at 10:21 RECOVERY 01:00 0.0 0.0 130 . 170/ 82 . . RECOVERY 02:00 0.0 0.0 116 . 170/ 82 . . RECOVERY 03:00 0.0 0.0 109 . 134/ 83 . . RECOVERY 04:00 0.0 0.0 96 . 153/ 75 . . RECOVERY 05:00 0.0 0.0 97 . 153/ 75 . . RECOVERY 06:00 0.0 0.0 96 . 133/ 76 . . RECOVERY 07:00 0.0 0.0 93 . 133/ 76 . . RECOVERY 07:50 0.0 0.0 97 . 134/ 72 . . Electronically signed by : Stacey Medrano MD 08/19/2023 13:09:36
== END 2023-08-18 23:59 | disposition home or self-care (01) ==
LOC: RAD 12:11
PROVIDERS: PCP Internal Medicine Adolescent Medicine; Visit Provider Nurse Practitioner
DX: R06.00 Dyspnea, unspecified (principal); I10 Essential (primary) hypertension; Z82.49 Family history of ischemic heart disease and other diseases of the circulatory system
CPT/HCPCS: 78452; 93017; 93018; A9502

== ENCOUNTER 2023-09-22 07:27 | Outpatient (CLI) | payer BC, SELFPAY ==
--- NOTE | 2023-09-22 07:28 | CT_ITS ---
APPROVED REPORT Booking Manager: CLINICAL INDICATION Chest Pain TECHNIQUE Image Acquisition: A 128 slice MDCT scanner ([employer] View) was used for data acquisition. A noncontrast coronary calcium scan was performed. A CT attenuation threshold of 130 Hounsfield units (HU) was used for the detection of calcium in contiguous voxels of 1 sq mm in area to be counted as individual lesions. Bolus tracking in the ascending aorta with a threshold of 180 HU was performed. Immediately afterwards, ECG synchronized cardiac CT was then performed from the cardiac base to apex using retrospective gating with ECG tube current modulation. A total of 85 mL of Isovue 370 mg/mL contrast medium was administered at 5 mL/sec followed by a saline flush using a biphasic injection protocol. A tube voltage of 120 KVp was used. The patient received the following medications prior to the cardiac CT. 75 mg of oral metoprolol 15 mg of oral ivabradine 0.8 mg of sublingual nitroglycerin The average heart rate at the time of acquisition was 44 bpm and regular. Image Reconstruction Transaxial images were reconstructed at 0.67 mm slide thickness. Data was reviewed interactively on an advanced workstation capable of 2 and 3-dimensional displays in all conventional reconstruction formats, including multiplanar reformations, maximum intensity projections, curved multiplanar reformations, and volume rendered reconstructions. When applicable, selected routine images describing the relevant coronary anatomy and pathology were saved and sent to PACS. Complications None Technical Quality Overall image quality was good. Coronary artery opacification was adequate. Total DLP (Dose-Length Product) is 2079.6 mGy-cm. The reported value represents the total of one or more individual components during the CT acquisition of this date and at this time, and as such, the same value may appear in more than one CT report depending on the interpreting/reporting physicians. COMPARISON None FINDINGS CT Coronary Calcium Scoring LMA (Left Main Artery) = 0 LAD (Left Anterior Descending) = 0 LCX (Left Coronary Circumflex) = 0 RCA (Right Coronary Artery) = 0 Total Calcium Score = 0 using the AJ-130 method. The interpretation of the calcium heart score is based on the following continuum*: 0 = no calcified plaque detected (risk of coronary artery disease is very low ??? less than 5%) 1-10 = calcium detected in extremely minimal levels (risk of coronary diseases is still low ??? less than 10%) 11-100 = mild levels of plaque detected with certainty (mild or minimal narrowing of heart arteries is likely) 101-400 = definite,at least moderate levels of plaque detected (relatively high risk of a heart attack within 3-5 years) >401-999 = extensive levels of plaque detected (high risk of heart attack, high levels of vascular disease are present, high likelihood of at least one significant coronary narrowing) *The calcium heart score quantifies the burden of coronary calcification/plaque in the coronary arteries. The calcium heart score is not able to evaluate the presence or burden of non-calcified (i.e. soft) plaque. There is no identifiable calcification in the aortic valve, mitral annulus or mitral valve, pericardium, or myocardium. Coronary CT Angiography The coronary arterial system is right dominant. Quantitative Stenosis Grading: Left Main (LM): The left main originates normally from the left sinus of Valsalva. The LM bifurcates into the left anterior descending artery and left circumflex artery. The LM is patent with no evidence of atherosclerosis. Left Anterior Descending (LAD) and Diagonal Branches: The LAD gives off 3 diagonal branch(es). The LAD and its branches are patent with no evidence of atherosclerosis. There is no evidence of LAD-myocardial bridge. Left Circumflex (LCX) and Obtuse Marginals (OM): The LCX gives off 2 Obtuse Marginal (OM) branch(es). The LCX and its branches are patent with no evidence of atherosclerosis. Right Coronary Artery (RCA): The RCA originates normally from the right sinus of Valsalva. The RCA gives off a posterior descending artery (PDA) and posterolateral (PL) branches. The RCA and its branches are patent with no evidence of atherosclerosis. Non-Coronary Cardiac Findings: Analysis of the left ventricular (LV) structure and function was performed after 3-D reconstruction of the LV from axial images, with user-corrected automatic contouring for assessment of LV volumes and user-defined reconstruction from oblique planes for measurement of 3-D cardiac structure and function. -The left ventricle systolic function is normal. -There is no left atrial appendage filling defect. Two right pulmonary veins and two left pulmonary veins drain normally into the left atrium. -No pericardial thickening or calcification. -Central and branch pulmonary arteries in the [id number] are unremarkable. -Thoracic aorta within the visualized thoracic aortic-branches in the [id number] is unremarkable. Extracardiac Structures No significant extra-cardiac findings. Note, however, that this study is focused on the cardiac findings. IMPRESSION -No coronary calcification with an Agatston score = 0 using the AJ-130 method. -No evidence of significant flow-limiting atherosclerosis of the coronary arteries. -No evidence of coronary anomalies or myocardial bridges. -CAD-RADS 0. Management recommendations per ACC/AHA guidelines*, as clinically appropriate. *Recommendations: CAD RADS 0: Reassurance. Consider non-atherosclerotic causes of chest pain. CAD RADS 1: Consider non-atherosclerotic causes of chest pain. Consider preventive therapy and risk factor modification. CAD RADS 2: Consider non-atherosclerotic causes of chest pain. Consider preventive therapy and risk factor modification, particularly for patients with nonobstructive plaque in multiple segments. CAD RADS 3: Consider further functional testing. Consider symptom-guided anti-ischemic and preventive pharmacotherapy as well as risk factor modification per published guideline statements. CAD RADS 4A: Consider further functional testing or invasive coronary angiography with revascularization per published guideline statements. Consider symptom-guided anti-ischemic and preventive pharmacotherapy as well as risk factor modification per published guideline statements. CAD RADS 4B: Invasive coronary angiography recommended with revascularization per published guideline statements. Consider symptom-guided anti-ischemic and preventive pharmacotherapy as well as risk factor modification per published guideline statements. CAD RADS 5: Consider invasive angiography and/or viability assessment with revascularization per published guideline statements. Consider symptom-guided anti-ischemic and preventive pharmacotherapy as well as risk factor modification per published guideline statements. CRITICAL RESULT None COMMUNICATION Per this written report The coronary and cardiac findings of this CCTA were reviewed, reported, and signed by Hernandez Medrano MD (Cherry Sorter) Conclusion Electronically signed by : Stacey Medrano MD 09/24/2023 13:02:14
[2023-09-22 07:41] VITALS: BMI 30.8
[2023-09-22 07:45] VITALS: BP 130/84; PULSE 79; RESP 18; TEMP 36.6; O2SAT 98
[2023-09-22] MEDS: METOPROLOL TARTRATE 50MG TABLET PO (07:57)
[2023-09-22] MEDS: METOPROLOL TARTRATE 25MG TABLET 25 MG (07:57)
[2023-09-22] MEDS: IVABRADINE HCL 7.5MG TABLET PO (07:57)
[2023-09-22 08:37] LABS: Chloride 105 mmol/L (98-107); Sodium 139 mmol/L (136-145)
[2023-09-22 08:40] LABS: Blood Urea Nitrogen 13 mg/dl (9-20); Creatinine Clearance Estimated 126 mL/min (50-200); Estimated Glomerular Filt Rate 79 ml/min (>60); GFR (African American) 96 ML/MIN (>60)
[2023-09-22 08:41] LABS: Calcium 9.9 mg/dl (8.4-10.2); Carbon Dioxide 24 mmol/L (22.0-30.0); Glucose 105 mg/dl (74-100)
[2023-09-22 09:03] VITALS: BP 141/104; PULSE 50; RESP 16; O2SAT 98
[2023-09-22 09:06] VITALS: BP 156/100; PULSE 50; RESP 18; O2SAT 99
[2023-09-22 09:09] VITALS: BP 131/82; PULSE 56; RESP 16; O2SAT 97
[2023-09-22 09:11] VITALS: BP 108/56; PULSE 49; RESP 16; O2SAT 97
[2023-09-22] MEDS: 0.9 % SODIUM CHLORIDE 50 ML VIAL IV (09:34)
[2023-09-22] MEDS: IOPAMIDOL-370 (76%);100ML BOTTLE 85 ML IV (09:34)
[2023-09-22] MEDS: SODIUM CHLORIDE 0.9% 10ML SYR (RAD ONLY) 10 ML IV (09:34)
[2023-09-22] MEDS: NITROGLYCERIN 0.4MG SL TABLET SL (09:51)
== END 2023-09-22 09:28 | disposition home or self-care (01) ==
PROVIDERS: PCP Internal Medicine Adolescent Medicine; Visit Provider Nurse Practitioner Family
DX: R07.89 Other chest pain (principal); R06.09 Other forms of dyspnea; R94.39 Abnormal result of other cardiovascular function study
CPT/HCPCS: 75574; 80048; Q9967